=== PATIENT | male | born 1930 | race African-American/Black ===

== ENCOUNTER 2016-12-16 18:41 | Emergency (ER) | payer MEDICARE, MEDICAID ==
[~2016-12-16] VITALS: Ht 175.3 cm; Wt 75.0 kg
[~2016-12-16 18:41] MED LIST: ACET-2178 PO; AMLO5TAB88 PO; BISA-81 PO; BISA-81 RC; CLON0.1T PO; LISI10TA5 PO; LOVA40TA73 PO; MAGNESIUM HYDROXIDE PO; MULT-1146 PO; QUET25TA PO; TAMS0.4C31 PO
[2016-12-16 20:01] LABS: BASOPHILS % 0.6 % (0.0-2.0); DIFFERENTIAL COMMENT 0; EOSINOPHILS % 3.1 % (0.0-5.0); HEMATOCRIT. 22.7 % (42.0-52.0); HEMOGLOBIN. 7.4 g/dL (14.0-18.0); LYMPHOCYTES % 11.6 % (20.0-50.0); MEAN CORPUSCULAR HEMOGLOBIN 24.5 pg (28.0-32.0); MEAN CORPUSCULAR HGB CONC 32.3 g/dL (31.0-37.0); MEAN CORPUSCULAR VOLUME 75.7 fL (80.0-94.0); MEAN PLATELET VOLUME 6.7 fl (7.4-10.4); MONOCYTES % 11.7 % (2.0-8.0); PLATELET 411 x1000/uL (130-400); WHITE BLOOD COUNT 10.1 x1000/uL (4.5-11.0)
[2016-12-16 20:08] LABS: INR 1.2; PROTHROMBIN TIME 12.2 sec
[2016-12-16 20:09] LABS: CHLORIDE 103 mEq/L (98-107); INDEX HEMOLYSI 1 (1-3); INDEX ICTERIC 1 (1-4); INDEX LIPEMIC 1 (1-3)
[2016-12-16 20:18] LABS: ALANINE AMINOTRANSFERASE 53 IU/L (13-61); ALBUMIN 1.6 g/dL (3.4-5.0); ANION GAP 9; CALCIUM 8.7 mg/dL (8.5-10.1); CARBON DIOXIDE 29 mEq/L (21-32); UREA NITROGEN BLOOD 26 mg/dL (7-21); eGFR > 60 mL/min (>60)
[2016-12-16 20:52] LABS: CLARITY URINE CLEAR (CLEAR); COLOR URINE YELLOW (YELLOW); GLUCOSE URINE NEGATIVE (NEGATIVE); KETONES URINE NEGATIVE (NEGATIVE); LEUKOCYTE ESTERASE URINE 1+ (NEGATIVE); NITRITE URINE NEGATIVE (NEGATIVE); OCCULT BLOOD URINE NEGATIVE (NEGATIVE); PH URINE 6.5 (4.5-8.0); PROTEIN URINE TRACE (NEGATIVE); SPECIFIC GRAVITY URINE 1.013 (1.005-1.030); UROBILINOGEN URINE 0.2 E.U./dL (0.2-1.0)
[2016-12-16 21:06] LABS: BACTERIA URINE 1+; RBC URINE 0-2 /hpf (0-2); SQUAMOUS EPITHELIAL CELL URINE NONE SEEN /lpf (RARE/1+)
[2016-12-17 02:03] VITALS: BP 139/57
== END 2016-12-17 02:12 | disposition home or self-care (01) ==
LOC: ER 18:42
DX: D64.9 Anemia, unspecified (principal); N39.0 Urinary tract infection, site not specified; I10 Essential (primary) hypertension; F03.90 Unspecified dementia, unspecified severity, without behavioral disturbance, psychotic disturbance, mood disturbance, and anxiety; Z79.899 Other long term (current) drug therapy; Z86.73 Personal history of transient ischemic attack (TIA), and cerebral infarction without residual deficits
CPT/HCPCS: 36415; 80053; 81001; 85025; 85610; 86850; 86900; 99285

== ENCOUNTER 2018-08-14 10:17 | Inpatient (IN) | payer MEDICARE, MEDICAID ==
[~2018-08-14] VITALS: Ht 167.6 cm; Wt 75.7 kg
[~2018-08-14 10:17] MED LIST changes: -ACET-2178 PO
[2018-08-14 12:52] LABS: BASOPHILS % 0.4 % (0.0-2.0); EOSINOPHILS % 7.1 % (0.0-5.0); HEMATOCRIT. 34.4 % (42.0-52.0); HEMOGLOBIN. 10.8 g/dL (14.0-18.0); LYMPHOCYTES % 14.1 % (20.0-50.0); MEAN CORPUSCULAR HEMOGLOBIN 24.8 pg (28.0-32.0); MEAN CORPUSCULAR VOLUME 78.8 fL (80.0-94.0); MEAN PLATELET VOLUME 8.4 fl (7.4-10.4); MONOCYTES % 7.5 % (2.0-8.0); NEUTROPHILS % 70.9 % (40.0-76.0); PLATELET 274 x1000/uL (130-400); RED BLOOD CELL COUNT 4.37 mill/uL (4.7-6.1); RED CELL DISTRIBUTION WIDTH 16.3 % (11.6-14.6)
[2018-08-14 12:59] LABS: CHLORIDE 114 mEq/L (98-107)
[2018-08-14 13:13] LABS: CLARITY URINE TURBID (CLEAR); COLOR URINE YELLOW (YELLOW); KETONES URINE NEGATIVE (NEGATIVE); LEUKOCYTE ESTERASE URINE 3+ (NEGATIVE); NITRITE URINE POSITIVE (NEGATIVE); OCCULT BLOOD URINE 2+ (NEGATIVE); PH URINE 7.5 (4.5-8.0); PROTEIN URINE 2+ (NEGATIVE); SPECIFIC GRAVITY URINE 1.014 (1.005-1.030); UROBILINOGEN URINE 0.2 E.U./dL (0.2-1.0)
[2018-08-14] MEDS ORDERED: CEFTRIAXONE 2 G PREMIX 50 ML IV ONE (14:00)
[2018-08-14] MEDS ORDERED: FUROSEMIDE 20MG/2ML VIAL IVP NR (14:45)
[2018-08-14] MEDS ORDERED: NITROGLYCERIN OINT 1GM/INCH UDPKT TD NR (14:45)
[2018-08-14 21:00] VITALS: BP 176/57
[2018-08-14] MEDS ORDERED: ONDANSETRON HCL 4MG/2ML INJ IV PRN (21:45)
[2018-08-14] MEDS ORDERED: IPRATROPIUM/ALBUTEROL 0.5-3(2.5)MG/3ML NEB INH PRN (21:45)
[2018-08-14] MEDS ORDERED: ACETAMINOPHEN 325MG TABLET PO PRN (21:45)
[2018-08-14 22:00] VITALS: BP 176/57
[2018-08-14] MEDS: DEXT 5%/0.45% NACL 1000ML 1,000 ML IV SCH (22:17)
[2018-08-14] MEDS ORDERED: DIPHENHYDRAMINE 50MG/ML VIAL IV PRN (22:30)
[2018-08-14] MEDS: HYDRALAZINE 20MG/ML VIAL IV PRN (22:37)
[2018-08-14] MEDS ORDERED: LEVOFLOXACIN 500MG PREMIX 100 ML IV NR (23:30)
[2018-08-15] VITALS (9 sets, daily range): BP systolic 90–169; BP diastolic 50–85
[2018-08-15] MEDS: LISINOPRIL 10MG TABLET PO SCH ×2 (09:00→09:37)
[2018-08-15] MEDS: TAMSULOSIN HCL 0.4MG SR CAPSULE PO SCH ×2 (09:00→09:37)
[2018-08-15] MEDS: FAMOTIDINE 20MG TABLET PO SCH (09:25)
[2018-08-15] MEDS: HYDRALAZINE 20MG/ML VIAL IV PRN (16:06)
[2018-08-15] MEDS: DEXT 5%/0.45% NACL 1000ML 1,000 ML IV SCH (17:44)
[2018-08-15] MEDS: LEVOFLOXACIN 250MG PREMIX 50 ML IV SCH (21:15)
[2018-08-15] MEDS: ENOXAPARIN 40MG/0.4ML SYR SUBCUT SCH (21:19)
[2018-08-16] VITALS: BP 143/57
[2018-08-16 04:00] VITALS: BP 162/65
[2018-08-16 06:56] LABS: BASOPHILS % 0.4 % (0.0-2.0); EOSINOPHILS % 9.5 % (0.0-5.0); HEMATOCRIT. 34.9 % (42.0-52.0); HEMOGLOBIN. 11.2 g/dL (14.0-18.0); LYMPHOCYTES % 19.2 % (20.0-50.0); MEAN CORPUSCULAR HEMOGLOBIN 25.2 pg (28.0-32.0); MEAN CORPUSCULAR VOLUME 78.5 fL (80.0-94.0); MEAN PLATELET VOLUME 8.5 fl (7.4-10.4); MONOCYTES % 9.9 % (2.0-8.0); PLATELET 278 x1000/uL (130-400); RED BLOOD CELL COUNT 4.44 mill/uL (4.7-6.1); RED CELL DISTRIBUTION WIDTH 15.9 % (11.6-14.6)
[2018-08-16 07:09] LABS: CHLORIDE 113 mEq/L (98-107)
[2018-08-16 07:53] VITALS: BP 184/67
[2018-08-16] MEDS: FAMOTIDINE 20MG TABLET PO SCH (08:09)
[2018-08-16] MEDS: LISINOPRIL 10MG TABLET PO SCH (08:09)
[2018-08-16] MEDS: HYDRALAZINE 20MG/ML VIAL IV PRN (08:09)
[2018-08-16] MEDS: TAMSULOSIN HCL 0.4MG SR CAPSULE PO SCH (08:09)
[2018-08-16 12:00] VITALS: BP 122/77
[2018-08-16 16:14] VITALS: BP 153/64
[2018-08-16] MEDS: DEXT 5%/0.45% NACL 1000ML 1,000 ML IV SCH (17:33)
[2018-08-16] MEDS ORDERED: VANCOMYCIN 1250MG in DEXTROSE 5% WATER 250ML IV SCH (18:30)
[2018-08-16 20:00] VITALS: BP 155/80
[2018-08-16] MEDS: LEVOFLOXACIN 250MG PREMIX 50 ML IV SCH (21:54)
[2018-08-16] MEDS: ENOXAPARIN 40MG/0.4ML SYR SUBCUT SCH (21:55)
[2018-08-17] VITALS: BP 149/66
[2018-08-17 04:00] VITALS: BP 154/50
[2018-08-17 08:00] VITALS: BP 185/57
[2018-08-17] MEDS: FAMOTIDINE 20MG TABLET PO SCH (08:18)
[2018-08-17] MEDS: TAMSULOSIN HCL 0.4MG SR CAPSULE PO SCH (08:18)
[2018-08-17] MEDS: LISINOPRIL 10MG TABLET PO SCH (08:19)
[2018-08-17] MEDS: HYDRALAZINE 20MG/ML VIAL IV PRN (08:19)
[2018-08-17] MEDS: DEXT 5%/0.45% NACL 1000ML 1,000 ML IV SCH (09:44)
[2018-08-17 12:24] VITALS: BP 149/68
[2018-08-17] MEDS ORDERED: VANCOMYCIN 1 G PREMIX 200 ML IV SCH ×2 (13:00→18:00)
[2018-08-17 16:04] VITALS: BP 143/79
[2018-08-17 20:00] VITALS: BP 155/57
[2018-08-17] MEDS: ENOXAPARIN 40MG/0.4ML SYR SUBCUT SCH (20:58)
[2018-08-17] MEDS: LEVOFLOXACIN 250MG PREMIX 50 ML IV SCH (21:02)
[2018-08-18] VITALS: BP 166/58
[2018-08-18 04:00] VITALS: BP 156/60
[2018-08-18] MEDS: FAMOTIDINE 20MG TABLET PO SCH (08:18)
[2018-08-18] MEDS: LISINOPRIL 10MG TABLET PO SCH (08:18)
[2018-08-18 08:48] LABS: CHLORIDE 108 mEq/L (98-107)
[2018-08-18] MEDS: TAMSULOSIN HCL 0.4MG SR CAPSULE PO SCH (09:00)
[2018-08-18 12:00] VITALS: BP 142/68
[2018-08-18] MEDS ORDERED: LIDOCAINE HCL 1% 20ML VIAL (Pyxis) INJ ONE (12:53)
[2018-08-18] MEDS: CEFEPIME 1,000 MG in DEXTROSE 5% WATER 50 ML IV SCH (13:50)
[2018-08-18 16:06] VITALS: BP 173/62
[2018-08-18 20:00] VITALS: BP 177/38
[2018-08-18] MEDS ORDERED: LEVOFLOXACIN 250MG TABLET PO SCH (21:00)
[2018-08-18] MEDS: HYDRALAZINE 20MG/ML VIAL IV PRN (21:01)
[2018-08-18] MEDS: ENOXAPARIN 40MG/0.4ML SYR SUBCUT SCH (21:01)
[2018-08-19] VITALS: BP 134/60
[2018-08-19] MEDS: CEFEPIME 1,000 MG in DEXTROSE 5% WATER 50 ML IV SCH (01:04)
[2018-08-19 04:00] VITALS: BP 173/65
[2018-08-19] MEDS: HYDRALAZINE 20MG/ML VIAL IV PRN (04:56)
[2018-08-19 08:00] VITALS: BP 144/70
[2018-08-19] MEDS: LISINOPRIL 10MG TABLET PO SCH (08:52)
[2018-08-19] MEDS: TAMSULOSIN HCL 0.4MG SR CAPSULE PO SCH (08:52)
[2018-08-19] MEDS: FAMOTIDINE 20MG TABLET PO SCH (08:52)
== END 2018-08-19 10:00 | DRG 981 ==
LOC: ER 10:17 → EDBEDREQ 13:39 → EDBD 14:01 → 8WST 14:01 → EDBEDREQ 14:05 → ENRESERV 20:15
PROVIDERS: ADMIT Hospitalist; ATTEND Hospitalist
PROC: 0KBP0ZZ Excision of Left Hip Muscle, Open Approach (ICD-10-PCS; 2018-08-15)
PROC: 0KBN0ZZ Excision of Right Hip Muscle, Open Approach (ICD-10-PCS; 2018-08-15)
PROC: 05HY33Z Insertion of Infusion Device into Upper Vein, Percutaneous Approach (ICD-10-PCS; principal; 2018-08-18)
PROC: B54MZZA Ultrasonography of Right Upper Extremity Veins, Guidance (ICD-10-PCS; 2018-08-18)
DX: N39.0 Urinary tract infection, site not specified (principal); G93.41 Metabolic encephalopathy; L89.154 Pressure ulcer of sacral region, stage 4; F03.90 Unspecified dementia, unspecified severity, without behavioral disturbance, psychotic disturbance, mood disturbance, and anxiety; D64.9 Anemia, unspecified; H40.9 Unspecified glaucoma; E78.00 Pure hypercholesterolemia, unspecified; I11.0 Hypertensive heart disease with heart failure; I50.9 Heart failure, unspecified; N40.0 Benign prostatic hyperplasia without lower urinary tract symptoms; W18.39XA Other fall on same level, initial encounter; Z87.440 Personal history of urinary (tract) infections; Y93.89 Activity, other specified; Y92.89 Other specified places as the place of occurrence of the external cause; Y99.8 Other external cause status
CPT/HCPCS: 36415; 36569; 71045; 76937; 80048; 82962; 83880; 84134; 84484; 87077; 87186; 93005; 93970; 96365; 96375; 99285; C1725; C1769; C1893; J0360; J0692; J0696; J1200; J1650; J1940; J1956; J3370; J3490; J7050; J7060

== ENCOUNTER 2018-12-11 23:27 | Inpatient (IN) | payer MEDICARE, MEDICAID ==
[~2018-12-11] VITALS: Ht 175.3 cm; Wt 73.1 kg
[2018-12-12] MEDS ORDERED: PIPERACILLIN/TAZ 3.375G PREMIX 50 ML IV NR (00:30)
[2018-12-12] MEDS ORDERED: PIPERACILLIN/TAZOBACTAM 3.375GM/50ML PREMIX IV ONE (00:30)
[2018-12-12] MEDS ORDERED: VANCOMYCIN 1 G PREMIX 200 ML IV SCH (00:30)
[2018-12-12 00:49] LABS: HEMATOCRIT 30.1 % (42.0-52.0); HEMOGLOBIN 9.6 g/dL (14.0-18.0); MEAN CORPUSCULAR HEMOGLOBIN 23.9 pg (28.0-32.0); PLATELET 283 x1000/uL (130-400); RED BLOOD CELL COUNT 4.01 mill/uL (4.7-6.1); RED CELL DISTRIBUTION WIDTH 16.2 % (11.6-14.6)
[2018-12-12 01:24] LABS: CHLORIDE 114 mEq/L (98-107)
[2018-12-12] MEDS ORDERED: DOCUSATE SODIUM 100MG CAPSULE PO PRN (10:30)
[2018-12-12] MEDS ORDERED: ACETAMINOPHEN 325MG TABLET PO PRN (10:30)
[2018-12-12] MEDS ORDERED: CLONIDINE 0.1MG TABLET PO PRN (10:30)
[2018-12-12] MEDS ORDERED: ONDANSETRON HCL 4MG/2ML INJ IV PRN (10:30)
[2018-12-12] MEDS ORDERED: LEVOFLOXACIN 500MG PREMIX 100 ML IV SCH (10:30)
[2018-12-12] MEDS ORDERED: BISACODYL 10MG SUPP PR PRN (10:30)
[2018-12-12] MEDS ORDERED: LEVOFLOXACIN 500MG PREMIX 100 ML IV ONE (12:45)
[2018-12-12 15:00] VITALS: BP 129/56
[2018-12-12] MEDS: FUROSEMIDE 40MG/4ML VIAL IV SCH (16:51)
[2018-12-12] MEDS: TAMSULOSIN HCL 0.4MG SR CAPSULE PO SCH (16:52)
[2018-12-12 20:35] VITALS: BP 143/44
[2018-12-12] MEDS: VANCOMYCIN 1 G PREMIX 200 ML IV SCH (21:02)
[2018-12-12] MEDS: QUETIAPINE FUMARATE 25MG TABLET PO SCH (21:03)
[2018-12-12] MEDS: ENOXAPARIN 40MG/0.4ML SYR SUBCUT SCH (21:03)
[2018-12-13 00:02] VITALS: BP 137/49
[2018-12-13 04:00] VITALS: BP 120/45
[2018-12-13 06:38] LABS: CHLORIDE 114 mEq/L (98-107)
[2018-12-13 06:42] LABS: BASOPHILS % 0.5 % (0.0-2.0); EOSINOPHILS % 3.8 % (0.0-5.0); HEMATOCRIT. 28.2 % (42.0-52.0); LYMPHOCYTES % 14.4 % (20.0-50.0); MEAN CORPUSCULAR HEMOGLOBIN 23.9 pg (28.0-32.0); MEAN CORPUSCULAR VOLUME 74.7 fL (80.0-94.0); MONOCYTES % 8.3 % (2.0-8.0); RED BLOOD CELL COUNT 3.78 mill/uL (4.7-6.1); RED CELL DISTRIBUTION WIDTH 16.5 % (11.6-14.6)
[2018-12-13 08:00] VITALS: BP 129/46
[2018-12-13] MEDS: TAMSULOSIN HCL 0.4MG SR CAPSULE PO SCH (09:19)
[2018-12-13] MEDS: FUROSEMIDE 40MG/4ML VIAL IV SCH (09:19)
[2018-12-13] MEDS: QUETIAPINE FUMARATE 25MG TABLET PO SCH ×2 (09:19→22:15)
[2018-12-13 12:00] VITALS: BP 137/48
[2018-12-13] MEDS ORDERED: LEVOFLOXACIN 250MG PREMIX 50 ML IV SCH (13:00)
[2018-12-13 13:12] LABS: PLATELET 385 x1000/uL (130-400)
[2018-12-13 16:00] VITALS: BP 147/51
[2018-12-13 20:30] VITALS: BP 161/83
[2018-12-13] MEDS: VANCOMYCIN 1 G PREMIX 200 ML IV SCH (21:40)
[2018-12-13] MEDS: ENOXAPARIN 40MG/0.4ML SYR SUBCUT SCH (22:16)
[2018-12-14] VITALS: BP 147/72
[2018-12-14 04:59] VITALS: BP 111/46
[2018-12-14 08:00] VITALS: BP 144/45
[2018-12-14] MEDS ORDERED: FUROSEMIDE 20MG/2ML VIAL IV SCH (09:00)
[2018-12-14] MEDS: QUETIAPINE FUMARATE 25MG TABLET PO SCH (09:44)
[2018-12-14] MEDS: TAMSULOSIN HCL 0.4MG SR CAPSULE PO SCH (09:44)
[2018-12-14 12:00] VITALS: BP 120/50
[2018-12-14 12:56] LABS: EOSINOPHILS % 2.2 % (0.0-5.0); LYMPHOCYTES % 10.1 % (20.0-50.0); MEAN CORPUSCULAR HEMOGLOBIN 23.9 pg (28.0-32.0); MEAN CORPUSCULAR VOLUME 75.6 fL (80.0-94.0); MEAN PLATELET VOLUME 8.8 fl (7.4-10.4); MONOCYTES % 7.3 % (2.0-8.0); NEUTROPHILS % 79.4 % (40.0-76.0); PLATELET 437 x1000/uL (130-400); RED BLOOD CELL COUNT 4.39 mill/uL (4.7-6.1); RED CELL DISTRIBUTION WIDTH 16.4 % (11.6-14.6)
[2018-12-14 13:12] LABS: HEMATOCRIT. 33.2 % (42.0-52.0); HEMOGLOBIN. 10.5 g/dL (14.0-18.0)
[2018-12-14 14:20] VITALS: BP 120/56
== END 2018-12-14 16:30 | DRG 871 ==
LOC: ER 23:27 → 6WST 12-12 00:54 → EDBEDREQ 12-12 10:06 → ENRESERV 12-12 13:17
PROVIDERS: ADMIT Hospitalist; ATTEND Hospitalist
DX: A41.9 Sepsis, unspecified organism (principal); L89.154 Pressure ulcer of sacral region, stage 4; E43 Unspecified severe protein-calorie malnutrition; J18.9 Pneumonia, unspecified organism; N17.9 Acute kidney failure, unspecified; N39.0 Urinary tract infection, site not specified; D64.9 Anemia, unspecified; F02.80 Dementia in other diseases classified elsewhere, unspecified severity, without behavioral disturbance, psychotic disturbance, mood disturbance, and anxiety; G30.9 Alzheimer's disease, unspecified; L85.3 Xerosis cutis; L97.529 Non-pressure chronic ulcer of other part of left foot with unspecified severity; N18.9 Chronic kidney disease, unspecified; R74.0 Nonspecific elevation of levels of transaminase and lactic acid dehydrogenase [LDH]; M19.90 Unspecified osteoarthritis, unspecified site; N40.0 Benign prostatic hyperplasia without lower urinary tract symptoms; I12.9 Hypertensive chronic kidney disease with stage 1 through stage 4 chronic kidney disease, or unspecified chronic kidney disease; L97.519 Non-pressure chronic ulcer of other part of right foot with unspecified severity; S90.822A Blister (nonthermal), left foot, initial encounter; S90.821A Blister (nonthermal), right foot, initial encounter; X58.XXXA Exposure to other specified factors, initial encounter; Y93.89 Activity, other specified; Y92.89 Other specified places as the place of occurrence of the external cause; Y99.8 Other external cause status; Z79.899 Other long term (current) drug therapy; Z68.23 Body mass index [BMI] 23.0-23.9, adult
CPT/HCPCS: 36415; 71045; 80048; 80202; 83605; 84134; 85027; 86850; 86900; 87077; 87186; 93306; 93970; 99291; J1650; J1940; J1956; J2543; J3370; J7050; A4315